=== PATIENT | female | born 1970 | race Hispanic/Latino ===

== ENCOUNTER → 2020-07-12 | Day surgery (SDC) | payer OTHER ==
[~2020-07-12] VITALS: Ht 154.9 cm; Wt 55.8 kg
[~2020-07-12] MED LIST: HYOSCYAMINE 0.125 MG TAB ONE; OMEGA-31000 MG PO; ZYRTEC10 M3 PO
[2020-07-12 14:10] VITALS: BP 140/91
--- NOTE | 2020-07-12 16:28 | Operative Report ---
DATE OF PROCEDURE: 07/12/2020 SURGEON: Dawson Cervantes MD PROCEDURES: EGD with biopsies and esophageal dilatation and colonoscopy with polypectomy. INDICATIONS FOR EGD: Dysphagia, heartburn, bloating. INDICATIONS FOR COLONOSCOPY: Colorectal cancer screening, constipation. MEDICATIONS: The patient was done under MAC, please see anesthesiologist's note. PROCEDURE IN DETAIL: With the patient in the left lateral decubitus position, a flexible fiberoptic Olympus gastroscope was introduced into the esophagus under direct visualization without any difficulty. There was some patchy erythema noted in distal esophagus. Minute tongues of velvety red mucosa were noted to extend proximally from the GE junction. Biopsies were obtained and sent to rule out Littlejohn esophagus. The scope was then advanced with ease into her stomach. Mucosa overlying the antrum and the body revealed some patchy erythema and [id number] edema, and biopsies were obtained and sent to stain for H. pylori. Pylorus was of normal contour and shape, was intubated with ease and the scope was advanced all the way to the second portion of the duodenum. The scope was then withdrawn slowly. Mucosa overlying the proximal second portion and duodenal bulb were grossly unremarkable. Biopsies were obtained to rule out sprue. The scope was then withdrawn back into the stomach and retroflexed, mucosa overlying the fundus and the cardia appeared to be within normal limits. The scope was then straightened out and it was subsequently withdrawn. The esophagus was then dilated to size 52-Polish Haddad. The patient tolerated the procedure well. IMPRESSION: 1. Distal esophagitis. 2. Rule out Littlejohn esophagus. 3. Esophagus dilated to size 52-Polish Haddad. 4. Gastritis, biopsied, biopsies sent to stain for Helicobacter pylori. 5. Rule out sprue. PLAN: Follow up histology. Initiate Protonix 40 mg one p.o. q.a.m. before meals. The patient was then turned around and after adequate lubrication of the anal canal, the flexible fiberoptic Olympus colonoscope was inserted into the rectum with ease and advanced all the way to the cecum. It was then withdrawn slowly. Mucosa overlying the cecum, ascending colon, and transverse colon appeared to be within normal limits. One polyp was hot snared from the descending colon. Diverticular disease was noted to involve the sigmoid colon. The rectum appeared to be within normal limits. The scope was then retroflexed into the distal rectum and small internal hemorrhoids were noted, none of which was actively bleeding. The scope was then straightened out, it was subsequently withdrawn, and the patient tolerated the procedure well. IMPRESSION: 1. Descending colon polyp, hot snared. 2. Diverticulosis. 3. Internal hemorrhoids, none actively bleeding. PLAN: Follow up histology. Initiate high-fiber, low-fat diet. Initiate high-fiber supplement. The patient might benefit from a followup colonoscopy in 3 to 5 years. Dawson Cervantes MD [facility] /[id number] cc: Dr. Aren Soto
== END | disposition home or self-care (01) ==
LOC: OR 09:45
PROVIDERS: ATTEND Internal Medicine Gastroenterology
DX: K29.50 Unspecified chronic gastritis without bleeding (principal); K63.5 Polyp of colon; K29.60 Other gastritis without bleeding; K20.90 Esophagitis, unspecified without bleeding; K59.00 Constipation, unspecified; K21.9 Gastro-esophageal reflux disease without esophagitis; K22.8 Other specified diseases of esophagus; K57.30 Diverticulosis of large intestine without perforation or abscess without bleeding; K64.8 Other hemorrhoids; A04.8 Other specified bacterial intestinal infections; K59.09 Other constipation; I10 Essential (primary) hypertension; E78.5 Hyperlipidemia, unspecified; R06.02 Shortness of breath; Z01.810 Encounter for preprocedural cardiovascular examination; Z01.812 Encounter for preprocedural laboratory examination; Z20.828 Contact with and (suspected) exposure to other viral communicable diseases; Z68.24 Body mass index [BMI] 24.0-24.9, adult
CPT/HCPCS: 43239; 43450; 45385; 81025; 93005; U0002; 45378; 45384